=== PATIENT | female | born 1995 | race Caucasian/White ===

== ENCOUNTER 2017-03-12 10:13 | Outpatient (CLI) | payer BC ==
[~2017-03-12] VITALS: Ht 160 cm; Wt 93.2 kg
[2017-03-12 10:38] VITALS: BP 141/91
[2017-03-12] MEDS ORDERED: LABETALOL 200 MG TABLET ONE (12:49)
[2017-03-12] MEDS ORDERED: BETAMETHASONE 6 MG/ML, 5ML IM ONE ×2 (12:49→13:00)
[2017-03-12] MEDS ORDERED: LABETALOL 200 MG TABLET PO SCH (13:00)
== END 2017-03-12 13:28 | disposition home or self-care (01) ==
LOC: LDOP 10:13
PROVIDERS: ATTEND Obstetrics & Gynecology
DX: O16.3 Unspecified maternal hypertension, third trimester (principal); Z3A.31 31 weeks gestation of pregnancy
CPT/HCPCS: 59025; 96372; 99201; J0702; G0463

== ENCOUNTER 2017-03-13 13:07 | Outpatient (CLI) | payer BC ==
[~2017-03-13] VITALS: Ht 160 cm; Wt 97.0 kg
[2017-03-13] MEDS ORDERED: BETAMETHASONE 6 MG/ML, 5ML IM ONE (13:30)
[2017-03-13] MEDS ORDERED: PLEASE ENTER HEIGHT AND WEIGHT MC SCH (13:30)
== END 2017-03-13 14:05 | disposition home or self-care (01) ==
LOC: LDOP 13:07
PROVIDERS: ATTEND Obstetrics & Gynecology
DX: Z23 Encounter for immunization (principal); Z3A.31 31 weeks gestation of pregnancy
CPT/HCPCS: 59025; 96372; 99211; J0702; G0463

== ENCOUNTER 2017-04-23 02:29 | Outpatient (CLI) | payer BC ==
[2017-04-23] MEDS ORDERED: ZOLPIDEM 5MG TABLET PO ONE (03:30)
[2017-04-23] MEDS ORDERED: ZOLPIDEM 5MG TABLET ONE (03:30)
== END 2017-04-23 03:32 | disposition home or self-care (01) ==
LOC: LDOP 02:29
PROVIDERS: ATTEND Obstetrics & Gynecology
DX: O26.893 Other specified pregnancy related conditions, third trimester (principal); O62.9 Abnormality of forces of labor, unspecified; R10.9 Unspecified abdominal pain; Z3A.00 Weeks of gestation of pregnancy not specified
CPT/HCPCS: 59025; 99211; G0463

== ENCOUNTER 2017-04-24 21:07 | Inpatient (IN) | payer BC ==
[~2017-04-24] VITALS: Ht 160 cm; Wt 95.0 kg
[2017-04-24] MEDS ORDERED: NEWBORN KIT ONE (21:13)
[2017-04-24] MEDS ORDERED: OXYTOCIN 30U/ 0.9% NaCL 500ML 500 ML IV ONE (21:49)
[2017-04-24] MEDS: D5%-LACTATED RINGERS 1,000 ML IV SCH (21:49)
[2017-04-24] MEDS ORDERED: SODIUM CITRATE/CITRIC ACID 30 ML UDC PO PRN (22:00)
[2017-04-24] MEDS ORDERED: TERBUTALINE 1 MG/ML, 1ML IVPush PRN (22:00)
[2017-04-24] MEDS ORDERED: METOCLOPRAMIDE 5 MG/ML, 2ML IVPush PRN (22:00)
[2017-04-24] MEDS ORDERED: PLEASE ENTER HEIGHT AND WEIGHT MC SCH (22:00)
[2017-04-24] MEDS ORDERED: MISOPROSTOL 25 MCG TABLET VG PRN (22:00)
[2017-04-24] MEDS ORDERED: TERBUTALINE 1 MG/ML, 1ML SQ PRN (22:00)
[2017-04-24] MEDS ORDERED: FENTANYL PF 100 MCG/2ML IV PRN (22:00)
[2017-04-24 22:12] LABS: HEMATOCRIT 32.5 % (34.6-47.8); HEMOGLOBIN 11.1 g/dL (11.7-16.4); WHITE BLOOD COUNT 12.1 x10^3/uL (3.4-10)
[2017-04-24 22:25] LABS: ASPARTATE AMINO TRANSFERASE 14 U/L (15-37); BLOOD UREA NITROGEN 9 mg/dL (7-18)
[2017-04-24] MEDS ORDERED: MISOPROSTOL 25 MCG TABLET ONE (22:59)
[2017-04-25] MEDS ORDERED: MISOPROSTOL 25 MCG TABLET ONE ×2 (03:22→08:20)
[2017-04-25] MEDS: D5%-LACTATED RINGERS 1,000 ML IV SCH (05:49)
[2017-04-25] MEDS ORDERED: FENTANYL PF 100 MCG/2ML ONE ×2 (06:32→08:46)
[2017-04-25] MEDS: LACTATED RINGERS 1,000 ML IV SCH ×4 (06:37→21:49)
[2017-04-25] MEDS: FENTANYL PF 100 MCG/2ML IVPush PRN (06:37)
[2017-04-25] MEDS ORDERED: OXYTOCIN 30U/ 0.9% NaCL 500ML 500 ML ONE (08:16)
[2017-04-25] MEDS ORDERED: BUPIVACAINE 0.25% ONE (08:46)
[2017-04-25] MEDS ORDERED: LIDOCAINE/PF 1.5%-EPI 1:200K, 30ML ONE (08:47)
[2017-04-25] MEDS ORDERED: FENTANYL/BUPIV./NS/PF 250 ML EPIDCONT ONE (08:47)
[2017-04-25] MEDS ORDERED: ONDANSETRON 2MG/ML, 2ML IVPush PRN (11:00)
[2017-04-25] MEDS ORDERED: ONDANSETRON 2MG/ML, 2ML ONE (11:07)
[2017-04-25] MEDS ORDERED: OXYTOCIN 10 UNITS/ML, 1ML ONE (17:30)
[2017-04-25] MEDS ORDERED: OXYTOCIN 10 UNITS/ML, 1ML IM ONE (18:00)
[2017-04-25] MEDS: OXYTOCIN 30U/ 0.9% NaCL 500ML 500 ML IV SCH (18:37)
[2017-04-25] MEDS ORDERED: OXYcodone/APAP 5/325MG TABLET PO PRN ×2 (19:00)
[2017-04-25] MEDS ORDERED: DOCUSATE 100 MG CAPSULE PO PRN (19:00)
[2017-04-25] MEDS ORDERED: MISOPROSTOL 200 MCG TABLET PR PRN (19:00)
[2017-04-25 19:40] VITALS: BP 128/81
[2017-04-25] MEDS: IBUPROFEN 600 MG TABLET PO PRN (20:55)
[2017-04-25 23:19] VITALS: BP 124/77
[2017-04-26 01:57] LABS: HEMATOCRIT 32.8 % (34.6-47.8); HEMOGLOBIN 11.2 g/dL (11.7-16.4); WHITE BLOOD COUNT 16.3 x10^3/uL (3.4-10)
[2017-04-26 02:42] LABS: DIFF TOTAL CELLS COUNTED 100 CELL DIFF
[2017-04-26 02:44] LABS: ANISOCYTOSIS 1+; VERIFY COUNTS? YES
[2017-04-26] MEDS: FENTANYL PF 100 MCG/2ML IVPush PRN ×4 (03:27→03:31)
[2017-04-26 04:10] VITALS: BP 129/82
[2017-04-26] MEDS: OXYTOCIN 30U/ 0.9% NaCL 500ML 500 ML IV SCH (04:37)
[2017-04-26] MEDS: LACTATED RINGERS 1,000 ML IV SCH (05:49)
[2017-04-26 07:06] VITALS: BP 124/82
[2017-04-26] MEDS ORDERED: PRENATAL VIT/IRON/FA 1 EACH TABLET PO SCH (09:00)
[2017-04-26 11:39] VITALS: BP 141/96
[2017-04-26] MEDS: IBUPROFEN 600 MG TABLET PO PRN (15:38)
[2017-04-26] MEDS ORDERED: IBUP-1222 PO (15:55)
[2017-04-26] MEDS ORDERED: OXYC-302 PO (15:55)
== END 2017-04-26 18:42 | disposition home or self-care (01) | DRG 775 ==
LOC: LDIP 21:07 → 2NW 04-25 19:34
PROVIDERS: ADMIT Obstetrics & Gynecology; ATTEND Obstetrics & Gynecology
PROC: 0W8NXZZ Division of Female Perineum, External Approach (ICD-10-PCS; principal; 2017-04-25)
PROC: 10E0XZZ Delivery of Products of Conception, External Approach (ICD-10-PCS; 2017-04-25)
PROC: 10907ZC Drainage of Amniotic Fluid, Therapeutic from Products of Conception, Via Natural or Artificial Opening (ICD-10-PCS; 2017-04-25)
PROC: 3E0R3BZ Introduction of Anesthetic Agent into Spinal Canal, Percutaneous Approach (ICD-10-PCS; 2017-04-25)
PROC: 00HU33Z Insertion of Infusion Device into Spinal Canal, Percutaneous Approach (ICD-10-PCS; 2017-04-25)
DX: O13.4 Gestational [pregnancy-induced] hypertension without significant proteinuria, complicating childbirth (principal); Z37.0 Single live birth; Z3A.37 37 weeks gestation of pregnancy
CPT/HCPCS: 36415; 80053; 81001; 82248; 84550; 85025; 86850; 86900; J2405; J3010; J3490; J2590; J7120

== ENCOUNTER 2019-08-26 21:08 | Emergency (ER) | payer SELFPAY ==
[~2019-08-26] VITALS: Ht 160 cm; Wt 95.6 kg
[~2019-08-26 21:08] MED LIST: ASPI-515 PO; IBUP-1222 PO; IRON1TAB60 PO; LABE100T6 PO; OXYC-302 PO; PREN-3 PO
[2019-08-26 21:12] VITALS: BP 154/96
[2019-08-26] MEDS ORDERED: IBUPROFEN 600 MG TABLET ONE (21:28)
[2019-08-26] MEDS ORDERED: ACETAMINOPHEN 500 MG TABLET ONE (21:29)
[2019-08-26] MEDS ORDERED: ACETAMINOPHEN 500 MG TABLET PO ONE (21:30)
[2019-08-26] MEDS ORDERED: IBUPROFEN 600 MG TABLET PO ONE (21:30)
--- NOTE | 2019-08-26 21:34 | NUR ---
PT CAME IN CO OF TOOTHACHE. MD IS BEDSIDE. PT MEDICATED PER MAR
== END 2019-08-26 22:01 | disposition home or self-care (01) ==
LOC: ED 21:38
DX: K08.89 Other specified disorders of teeth and supporting structures (principal)
CPT/HCPCS: 99283

== ENCOUNTER 2020-08-03 22:11 | Emergency (ER) | payer SELFPAY ==
[~2020-08-03] VITALS: Ht 160 cm; Wt 95.0 kg
[~2020-08-03 22:11] MED LIST changes: -ASPI-515 PO; +ASPI-963 PO; -OXYC-302 PO; +OXYC1TAB14 PO
--- NOTE | 2020-08-03 22:30 | NUR ---
PT WHEELED TO ROOM AND ERP AT BEDSIDE FOR EVAL AT THIS TIME
[2020-08-03] MEDS ORDERED: MAALOX/HYOSCYAMINE/LIDOCAINE 45 ML BTL ONE (22:41)
--- NOTE | 2020-08-03 22:43 | NUR ---
PT HERE FOR BILAT UPPER AB PAIN, PT DENIES ANY MEDICATL HISTORY OR ANY N/V/D. GIVEN GI COCKTAIL FOR AB PAIN, TOLERATED WELL, LAB AT BEDSIDE FOR BLOOD DRAW. NO OTHER NEEDS AT THIS TIME
[2020-08-03 22:57] LABS: BASOPHILS % (AUTO) 1 % (0-1); EOSINOPHILS % (AUTO) 0 % (1-7); LYMPHOCYTES % (AUTO) 21 % (22-44); MEAN CORPUSCULAR HEMOGLOBIN 30.4 pg (27.0-34.8); MEAN CORPUSCULAR HGB CONC 34.3 g/dL (32.4-35.8); MEAN PLATELET VOLUME 7.6 fL (7.4-10.4); MONOCYTES % (AUTO) 4 % (2-9); NEUTROPHILS % (AUTO) 74 % (42-75); PLATELET COUNT 321 x10^3/uL (130-400); RED CELL DISTRIBUTION WIDTH 13.1 % (9.6-15.2)
[2020-08-03 23:00] LABS: MD NO
[2020-08-03] MEDS ORDERED: MAALOX/HYOSCYAMINE/LIDOCAINE 45 ML BTL PO ONE (23:00)
[2020-08-03 23:05] LABS: ALANINE AMINOTRANSFERASE 41 U/L (12-78); ALBUMIN 3.5 g/dL (3.4-5.0); ANION GAP 7 mmol/L (5-15); CALCIUM 8.6 mg/dL (8.5-10.1); CHLORIDE 105 mmol/L (98-107); CREATININE 0.87 mg/dL (0.55-1.02)
[2020-08-03 23:10] LABS: ALKALINE PHOSPHATASE 85 U/L (45-117); BILIRUBIN,TOTAL 0.3 mg/dL (0.2-1.0); TOTAL PROTEIN 7.4 g/dL (6.4-8.2)
[2020-08-03] MEDS ORDERED: HYDROcodone/APAP 5/325 TABLET ONE (23:54)
--- NOTE | 2020-08-03 23:58 | NUR ---
PT STATES HAVING INCREASED PAIN 7-8/10 AFTER ULTRASOUND. PT MEDICATED PER EMAR AND ON ALL MONITORS
[2020-08-04] MEDS ORDERED: HYDROcodone/APAP 5/325 TABLET PO ONE
[2020-08-04 00:30] VITALS: BP 133/85
--- NOTE | 2020-08-04 00:30 | NUR ---
pt states pain has improved to 4/10 pain with oral pain meds. erp updated
== END 2020-08-04 00:44 | disposition home or self-care (01) ==
LOC: ED 22:54
DX: K20.80 Other esophagitis without bleeding (principal); R94.31 Abnormal electrocardiogram [ECG] [EKG]; Z88.0 Allergy status to penicillin
CPT/HCPCS: 36415; 76700; 80053; 83690; 84703; 85025; 93005; 99285

== ENCOUNTER 2021-01-21 18:51 | Emergency (ER) | payer SELFPAY ==
[~2021-01-21] VITALS: Ht 160 cm; Wt 84.1 kg
--- NOTE | 2021-01-21 19:10 | NUR ---
BIB EMS FROM HOME AFTER PT FELL ON THE FLOOR. PER MOM HEARD A THUD AND SAW PT TWITCHING AND WAS NOT RESPONDING. AFTER A FEW MINUTES PT STARTED RESPONDING AND APPEARED POST ICTAL. DENIES HX SZ/MIGRAINES/HANLEY. PT DID NOT BITE TONGUE. NO INCONTINENCE. RECEIVED 300 ML NS [employer]. VS [employer] HR 110, 99% RA, RR 20, BP 142/82, BS 105. PT RESTING ON GURNEY. NADN. MONITORS APPLIED. VSS. WARM BLANKET PROVIDED. CALL LIGHT IN REACH. FAMILY AT BEDSIDE.
[2021-01-21] MEDS ORDERED: SODIUM CHLORIDE 0.9% 1,000ML IVBOLUS ONE (19:30)
[2021-01-21 20:12] LABS: BASOPHILS % (AUTO) 0 % (0-1); EOSINOPHILS % (AUTO) 0 % (1-7); LYMPHOCYTES % (AUTO) 14 % (22-44); MEAN CORPUSCULAR HEMOGLOBIN 31.5 pg (27.0-34.8); MEAN CORPUSCULAR HGB CONC 34.3 g/dL (32.4-35.8); MEAN PLATELET VOLUME 7.9 fL (7.4-10.4); MONOCYTES % (AUTO) 5 % (2-9); NEUTROPHILS % (AUTO) 81 % (42-75); PLATELET COUNT 311 x10^3/uL (130-400); RED BLOOD COUNT 4.53 x10^6/uL (3.82-5.3); RED CELL DISTRIBUTION WIDTH 12.7 % (9.6-15.2)
--- NOTE | 2021-01-21 20:12 | NUR ---
PT RESTING ON GURNEY. NADN. SMYTH.
[2021-01-21 20:18] LABS: ALANINE AMINOTRANSFERASE 22 U/L (12-78); ALBUMIN 3.6 g/dL (3.4-5.0); ANION GAP 8 mmol/L (5-15); CALCIUM 9.2 mg/dL (8.5-10.1); CHLORIDE 104 mmol/L (98-107); CREATININE 0.79 mg/dL (0.55-1.02)
[2021-01-21 20:23] LABS: ALKALINE PHOSPHATASE 57 U/L (45-117); BILIRUBIN,TOTAL 0.2 mg/dL (0.2-1.0); TOTAL PROTEIN 7.5 g/dL (6.4-8.2)
[2021-01-21 20:44] LABS: AMPHETAMINE SCREEN, URINE Negative (Negative); BARBITURATE SCREEN, URINE Negative (Negative); BENZODIAZEPINE SCREEN, URINE Negative (Negative); CANNABINOID SCREEN, URINE Negative (Negative); COCAINE SCREEN, URINE Negative (Negative); METHADONE SCREEN, URINE Negative (Negative); OPIATE SCREEN, URINE Positive (Negative)
--- NOTE | 2021-01-21 20:57 | NUR ---
REPORT GIVEN TO NANDA RIOJAS.
[2021-01-21 20:58] VITALS: BP 109/65
[2021-01-21 21:05] LABS: MICROSCOPIC INDICATED
== END 2021-01-21 22:35 | disposition home or self-care (01) ==
LOC: ED 19:20
DX: R56.9 Unspecified convulsions (principal); R51.9 Headache, unspecified
CPT/HCPCS: 36415; 70450; 80053; 80307; 80320; 81001; 83735; 84703; 85025; 87086; 93005; 96360; 99285; J7030; G0480